=== PATIENT | female | born 1965 | race American Indian/Alaskan Native ===

== ENCOUNTER 2018-04-14 16:45 | Emergency (ER) | payer MEDICAID ==
[2018-04-14 16:55] VITALS: BP 126/81; PULSE 99; RESP 17; TEMP 98; O2SAT 98
--- NOTE | 2018-04-14 17:35 | C.PDOC ---
History Of Present Illness 52 year old female with a history of anxiety presents to the ED requesting medical refill. The patient reports she ran out of her medications, notes Dr. Leigh is out of the office on vacation. Offers no medical complaints at this time. Time Seen by Provider: 04/14/18 17:15 Chief Complaint (Nursing): Med Refill History Per: Patient History/Exam Limitations: no limitations Past Medical History Reviewed: Historical Data, Nursing Documentation, Vital Signs Vital Signs: Last Vital Signs Temp 98 F 04/14/18 16:53 Pulse 99 H 04/14/18 16:53 Resp 17 04/14/18 16:53 BP 126/81 04/14/18 16:53 Pulse Ox 98 04/14/18 16:53 - Medical History PMH: Anxiety, Depression, HTN Family History: States: Unknown Family Hx - Social History Hx Alcohol Use: No Hx Substance Use: No - Immunization History Hx Tetanus Toxoid Vaccination: No Hx Influenza Vaccination: No Hx Pneumococcal Vaccination: No Review Of Systems Except As Marked, All Systems Reviewed And Found Negative. Psych: Positive for: Anxiety Physical Exam - Physical Exam Appears: Non-toxic, No Acute Distress Skin: Normal Color, Warm, Dry Head: Atraumatic, Normacephalic Eye(s): bilateral: Normal Inspection, PERRL, EOMI Nose: Normal Oral Mucosa: Moist Neck: Supple Chest: Symmetrical Cardiovascular: Rhythm Regular, No Murmur Respiratory: Normal Breath Sounds, No Rales, No Rhonchi, No Wheezing Gastrointestinal/Abdominal: Normal Exam, Soft, No Tenderness Extremity: Bilateral: Atraumatic, Normal Color And Temperature, Normal ROM ED Course And Treatment O2 Sat by Pulse Oximetry: 98 (RA) Pulse Ox Interpretation: Normal Medical Decision Making Medical Decision Making: Assessment: anxiety Progress/Update: Spoke with Dr. Leigh who recommended prescribing the patient 3 tablets, patient should visit his office on Monday. Prescribed Ativan. Patient stable for discharge home. Disposition Counseled Patient/Family Regarding: Need For Followup, Rx Given - Disposition Referrals: Karmen Leigh MD [Staff Provider] - Disposition: HOME/ ROUTINE Disposition Time: 17:32 Condition: STABLE Additional Instructions: see you doctor on monday return to ER if symptoms develop Prescriptions: Lorazepam [Ativan] 1 mg PO TID #3 tablet Instructions: Anxiety, Adult (DC) Forms: [facility] (Khmer), General Discharge Instructions - Clinical Impression Clinical Impression: Medication refill - Scribe Statement The provider has reviewed the documentation as recorded by the Scribe (Betty Meneses) Provider Attestation: All medical record entries made by the Scribe were at my direction and personally dictated by me. I have reviewed the chart and agree that the record accurately reflects my personal performance of the history, physical exam, medical decision making, and the department course for this patient. I have also personally directed, reviewed, and agree with the discharge instructions and disposition.
== END 2018-04-14 17:38 | disposition home or self-care (01) ==
LOC: C.ER 16:45
DX: Z76.0 Encounter for issue of repeat prescription (principal); F41.9 Anxiety disorder, unspecified